=== PATIENT | female | born 1995 | race Asian ===

== ENCOUNTER 2018-03-02 20:38 | Emergency (ER) | payer OTHER ==
[~2018-03-02] VITALS: Ht 152.4 cm; Wt 71.4 kg
[2018-03-02 20:42] VITALS: BP 136/93
== END 2018-03-02 21:36 | disposition home or self-care (01) ==
LOC: ED 21:15
DX: N63.20 Unspecified lump in the left breast, unspecified quadrant (principal)
CPT/HCPCS: 99281

== ENCOUNTER → 2018-03-27 | Outpatient (CLI) | payer OTHER | END | disposition home or self-care (01) | LOC: CFH 13:53 | PROVIDERS: ATTEND Student in an Organized Health Care Education/Training Program | DX: N63.21 Unspecified lump in the left breast, upper outer quadrant (principal) ==

== ENCOUNTER → 2018-03-29 | Outpatient (CLI) | payer OTHER ==
[~2018-03-29] MED LIST: LIDOCAINE 1%-EPI 1:100K, 30ML ONE; SODIUM BICARBONATE 4.2%, 5ML ONE
== END | disposition home or self-care (01) ==
LOC: CFH 08:38
PROVIDERS: ATTEND Student in an Organized Health Care Education/Training Program
DX: N63.21 Unspecified lump in the left breast, upper outer quadrant (principal)
CPT/HCPCS: 19083; 19084; 88305; J3490